=== PATIENT | female | born 1995 | race Two or more races ===

== ENCOUNTER 2017-03-19 23:45 | Observation (INO) | payer OTHER ==
[~2017-03-19] VITALS: Ht 165.1 cm; Wt 60.0 kg
[2017-03-20] MEDS ORDERED: CHARCOAL/AQUEOUS 25 GM/120 ML PO ONE
[2017-03-20 00:11] LABS: DAU SCREEN DISCLAIMER
[2017-03-20 00:17] LABS: HEMATOCRIT 41.5 % (34.6-47.8); HEMOGLOBIN 13.8 g/dL (11.7-16.4); WHITE BLOOD COUNT 6.8 x10^3/uL (4.5-13.2)
[2017-03-20 00:21] LABS: PATH.CAST-FLAG NOT PRESENT; SPERM-FLAG NOT PRESENT; SRC-FLAG NOT PRESENT; XTAL-FLAG NOT PRESENT; YLC-FLAG NOT PRESENT
[2017-03-20 00:30] LABS: ASPARTATE AMINO TRANSFERASE 16 U/L (15-37); BLOOD UREA NITROGEN 9 mg/dL (7-18)
[2017-03-20 00:38] LABS: ACETAMINOPHEN < 2 mcg/mL (10-30)
[2017-03-20] MEDS ORDERED: ONDANSETRON ODT 4 MG PO PRN (03:30)
[2017-03-20] MEDS ORDERED: PLEASE ENTER ALLERGIES MC SCH ×2 (03:30)
[2017-03-20 04:21] VITALS: BP 94/69
[2017-03-20 08:00] VITALS: BP 108/72
[2017-03-20 19:30] VITALS: BP 115/79
[2017-03-21 08:00] VITALS: BP 89/62
== END 2017-03-21 16:30 ==
LOC: ED 23:59 → SUATTDRO 03-20 03:08 → EDIP 03-20 03:10 → INTOOBSV 03-20 03:10 → 3E 03-20 04:18
PROVIDERS: ADMIT Hospitalist; ATTEND Hospitalist
DX: T43.592A Poisoning by other antipsychotics and neuroleptics, intentional self-harm, initial encounter (principal); F12.10 Cannabis abuse, uncomplicated; F32.9 Major depressive disorder, single episode, unspecified; Y92.89 Other specified places as the place of occurrence of the external cause
CPT/HCPCS: 36415; 80053; 80307; 80329; 81001; 84703; 85025; 87086; 99285; G0378; G0479; G0480

== ENCOUNTER 2017-08-25 13:15 | Emergency (ER) | payer OTHER ==
[~2017-08-25] VITALS: Ht 162.6 cm; Wt 63.1 kg
[2017-08-25 13:18] VITALS: BP 114/63
[2017-08-25] MEDS ORDERED: PROPARACAINE OPHTH 0.5%, 15ML EACHEYE ONE (14:00)
[2017-08-25] MEDS ORDERED: FLUORESCEIN OPHTHALMIC 1 MG STRIP EACHEYE ONE (14:00)
== END 2017-08-25 14:26 | disposition home or self-care (01) ==
LOC: ED 14:10
DX: H10.021 Other mucopurulent conjunctivitis, right eye (principal)
CPT/HCPCS: 99283